=== PATIENT | female | born 1990 | race Caucasian/White ===

== ENCOUNTER 2016-06-30 09:49 | Emergency (ER) | payer OTHER ==
[2016-06-30] MEDS ORDERED: ACETAMINOPHEN 500 MG TABLET ONE (11:00)
[2016-06-30] MEDS ORDERED: ONDANSETRON 4 MG ODT TAB ONE ×2 (11:01→11:03)
== END 2016-06-30 12:06 | disposition home or self-care (01) ==
LOC: ED 09:49
DX: R11.10 Vomiting, unspecified (principal); R19.7 Diarrhea, unspecified; E66.9 Obesity, unspecified; E28.2 Polycystic ovarian syndrome; Z88.0 Allergy status to penicillin
CPT/HCPCS: 99283 ×2; A9270 ×3